=== PATIENT | female | born 1925 | race Caucasian/White ===

== ENCOUNTER → 2016-08-01 | Outpatient (CLI) | payer MEDICARE, OTHER ==
--- NOTE | 2016-08-01 14:13 | Diagnostic Imaging Report ---
PROCEDURE: US Bilateral lower extremity arterial. TECHNIQUE: Multiple real-time grayscale images are obtained through both lower extremity arterial systems with color Doppler imaging and color Doppler spectral analysis. INDICATION: Peripheral arterial disease. FINDINGS: Grayscale images in the femoropopliteal segments demonstrate the multifocal atherosclerotic plaque. There is a occlusion of the mid to distal aspect of the right SFA with reconstitution in the right popliteal artery. Biphasic proximal femoral artery waveforms are seen with monophasic waveforms after the reconstitution as expected. There is diminished flow velocity of 22 cm per second seen in the right dorsalis pedis artery. There is a segment of complete occlusion in the mid the aspect of the left superficial femoral artery. Reconstitution in the distal SFA with diminished flow velocity of 30 cm per second is seen. There is particularly diminished flow velocities with monophasic waveforms in the left posterior tibial and dorsalis pedis arteries. The velocities in the range of 15-18 cm per second. IMPRESSION: Severe peripheral arterial disease, worse on the left side. There is complete occlusion in the mid to distal right SFA and complete occlusion in the mid left SFA. Report was faxed to office of Dr. Tello @ 2:03 PM/elena. Dictated by: Dictated on workstation # [id number]
--- NOTE | 2016-08-01 14:13 | Diagnostic Imaging Report ---
EXAMINATION: Upper and lower extremity pressure measurements of ankle/brachial index and pulse volume recording at the ankle. INDICATION: Claudication FINDINGS: The blood pressure in the right upper extremity is 112 and the in the left upper extremity is 138 mmHg. The ankle/brachial index on the right side is 0.54, (0.54 DP, and 0.51 PT) and on the left is 0.61 (0.61 DP, and 0.56 PT). Pulse volume recording waveforms demonstrate moderately dampened amplitude bilaterally. IMPRESSION: Moderate to severe peripheral arterial disease. There is also reduced blood pressure in the right upper extremity which could relate to proximal right artery only a disease. Correlation with CTA of the neck can help further evaluate. Dictated by: Dictated on workstation # [id number]
== END ==
LOC: RAD 10:42
PROVIDERS: ATTEND Podiatrist
DX: I70.203 Unspecified atherosclerosis of native arteries of extremities, bilateral legs (principal)
CPT/HCPCS: 93922; 93925